=== PATIENT | male | born 1960 | race Caucasian/White ===

== ENCOUNTER 2017-01-08 18:35 | Emergency (ER) | payer OTHER ==
[~2017-01-08 18:35] MED LIST: ADA60 PO; ALD50 PO; APR50 PO; CAT0.1 PO; CLONIDINE0.1 M1 PO; DIOHCT PO; FENOFIBRATE145 M1 PO; FUROSEMIDE40 MG PO; GLIPIZIDE5 MG PO; ISO10 PO; KLOR-CON M2020 MEQ PO; LIPI20 PO; LOVAZA1 G1 PO; NEFEDIPINE PO; NIFEDIPINE ER60 MG PO; PYR100 PO; SYN1 PO; SYN2 PO; TOP50 PO; ZES10 PO; ZES20 PO; ZESTRIL40 MG PO
[2017-01-08 20:39] LABS: BASOPHIL % 0.7 % (0-2); CALCIUM 7.9 mg/dL (8.5-10.1); CARBON DIOXIDE 32.3 mmol/L (21-32); CREATININE SERUM 3.5 mg/dL (0.7-1.3); POTASSIUM SERUM 3.2 mmol/L (3.5-5.1)
[2017-01-08 20:42] LABS: PLATELET COUNT 405 x10^3mcL (130-400); RED CELL DISTRIBUTION WIDTH 16.6 % (11.5-14.5)
[2017-01-08 20:44] LABS: BILIRUBIN TOTAL 0.59 mg/dL (0.20-1.00); TOTAL PROTEIN, SERUM 6.8 g/dL (6.4-8.2)
[2017-01-08 20:49] LABS: ALBUMIN 2.3 g/dL (3.4-5.0)
[2017-01-09 02:45] VITALS: BP 120/88
== END 2017-01-09 02:45 | disposition short-term general hospital (02) ==
LOC: ED 18:35
PROVIDERS: Emergency Medicine
DX: R07.89 Other chest pain (principal); R09.02 Hypoxemia; N28.9 Disorder of kidney and ureter, unspecified; R79.89 Other specified abnormal findings of blood chemistry; I10 Essential (primary) hypertension; E11.9 Type 2 diabetes mellitus without complications; Z85.850 Personal history of malignant neoplasm of thyroid
CPT/HCPCS: 36600; 83880; J0456; J0696; J1644; J2270; J2405; J7030; J7040; J7050; J7613; Q0092

== ENCOUNTER 2017-03-10 10:22 | Inpatient (IN) | payer OTHER ==
[~2017-03-10] VITALS: Ht 172.7 cm; Wt 87.2 kg
[2017-03-10 11:20] LABS: RED CELL DISTRIBUTION WIDTH 13.7 % (11.5-14.5)
[2017-03-10 11:29] LABS: BASOPHIL % 0.3 % (0-2); PLATELET COUNT 535 x10^3mcL (130-400)
[2017-03-10 11:40] LABS: BILIRUBIN TOTAL 0.6 mg/dL (0.20-1.00); CALCIUM 9.1 mg/dL (8.5-10.1); CARBON DIOXIDE 23.5 mmol/L (21-32); CREATININE SERUM 2.8 mg/dL (0.7-1.3); TOTAL PROTEIN, SERUM 7.9 g/dL (6.4-8.2)
[2017-03-10 11:42] LABS: ALBUMIN 2.9 g/dL (3.4-5.0)
[2017-03-10 11:43] LABS: POTASSIUM SERUM 2.7 mmol/L (3.5-5.1)
[2017-03-10 12:54] LABS: T4(THYROXINE) 19.2 ug/dL (4.7-13.3)
[2017-03-10 13:11] LABS: AMYLASE 42 U/L (25-115); HDL CHOLESTEROL 41 mg/dL (40-60); LIPASE 218 IU/L (73-393); MAGNESIUM 2.1 mg/dL (1.8-2.4); PHOSPHOROUS 2.3 mg/dL (2.5-4.9)
[2017-03-10 13:12] LABS: CHOLESTEROL 268 mg/dL (<200); CHOLESTEROL/HDL RATIO 6.5; TRIGLYCERIDES 434 mg/dL (<150)
[2017-03-10 13:17] LABS: microscopic required? YES; urine erythrocyte TRACE (NEGATIVE)
[2017-03-10 13:56] VITALS: BP 194/99
[2017-03-10 14:13] LABS: AMPHETAMINE QUAL UR NONE DETECTED (NEG <=1000)
[2017-03-10 17:37] VITALS: BP 178/100
[2017-03-10 21:28] LABS: CARBON DIOXIDE 26.6 mmol/L (21-32); CREATININE SERUM 2.8 mg/dL (0.7-1.3)
[2017-03-10 21:34] VITALS: BP 159/78
[2017-03-11] VITALS (10 sets, daily range): BP systolic 167–212; BP diastolic 95–111
[2017-03-11 06:34] LABS: BASOPHIL % 0.5 % (0-2); RED CELL DISTRIBUTION WIDTH 13.7 % (11.5-14.5)
[2017-03-11 06:53] LABS: PLATELET COUNT 406 x10^3mcL (130-400)
[2017-03-11 07:02] LABS: CALCIUM 8.2 mg/dL (8.5-10.1); CARBON DIOXIDE 25.8 mmol/L (21-32); CREATININE SERUM 2.8 mg/dL (0.7-1.3); MAGNESIUM 2.2 mg/dL (1.8-2.4); PHOSPHOROUS 3.7 mg/dL (2.5-4.9); POTASSIUM SERUM 3.1 mmol/L (3.5-5.1)
[2017-03-12 01:15] VITALS: BP 167/89
[2017-03-12 05:22] VITALS: BP 168/87
[2017-03-12 05:53] LABS: BASOPHIL % 0.5 % (0-2); PLATELET COUNT 342 x10^3mcL (130-400); RED CELL DISTRIBUTION WIDTH 14.3 % (11.5-14.5)
[2017-03-12 06:03] LABS: CALCIUM 8.2 mg/dL (8.5-10.1); CARBON DIOXIDE 26.7 mmol/L (21-32); CREATININE SERUM 3.1 mg/dL (0.7-1.3); POTASSIUM SERUM 3.2 mmol/L (3.5-5.1)
[2017-03-12 08:00] VITALS: BP 195/100
[2017-03-12 12:30] VITALS: BP 168/90
[2017-03-12] MEDS ORDERED: CLONIDINE HYDR0.3 M1 PO (12:30)
[2017-03-12] MEDS ORDERED: ISO10 PO (12:32)
[2017-03-12] MEDS ORDERED: COUMADIN5 MG PO (12:41)
[2017-03-12 13:46] VITALS: BP 156/84
[2017-03-12 15:00] VITALS: BP 156/84
== END 2017-03-12 15:55 | disposition home or self-care (01) | DRG 73 ==
LOC: ED 10:22 → DU 12:07 → MU 03-12 11:29
PROVIDERS: Emergency Medicine; ADMIT Family Medicine
DX: G90.8 Other disorders of autonomic nervous system (principal); N17.0 Acute kidney failure with tubular necrosis; E44.0 Moderate protein-calorie malnutrition; D68.69 Other thrombophilia; E87.6 Hypokalemia; E86.0 Dehydration; I16.0 Hypertensive urgency; E78.2 Mixed hyperlipidemia; E89.0 Postprocedural hypothyroidism; E83.39 Other disorders of phosphorus metabolism; E66.9 Obesity, unspecified; Z68.30 Body mass index [BMI] 30.0-30.9, adult; Z86.711 Personal history of pulmonary embolism; Z79.01 Long term (current) use of anticoagulants; Z85.850 Personal history of malignant neoplasm of thyroid; Z90.89 Acquired absence of other organs; Z82.3 Family history of stroke; Z82.49 Family history of ischemic heart disease and other diseases of the circulatory system; Z83.3 Family history of diabetes mellitus; Z80.8 Family history of malignant neoplasm of other organs or systems
CPT/HCPCS: 83880; 87046; 87046-59; 97110-GP; 97116-GP; C9113; J0360; J2765; J3480; J7030; Q0092

== ENCOUNTER 2017-12-12 22:54 | Inpatient (IN) | payer OTHER ==
[~2017-12-12] VITALS: Ht 165.1 cm; Wt 94.9 kg
[~2017-12-12 22:54] MED LIST changes: +CLONIDINE HYDR0.3 M1 PO; +COUMADIN5 MG PO
[2017-12-12 22:58] VITALS: Ht 165.1 cm; Wt 94.9 kg
[2017-12-13 00:01] LABS: BASOPHIL % 0 % (0-2); PLATELET COUNT 374 x10^3mcL (130-400)
[2017-12-13 00:13] LABS: BILIRUBIN TOTAL 0.9 mg/dL (0.20-1.00); CARBON DIOXIDE 24.3 mmol/L (21-32); TOTAL PROTEIN, SERUM 7.2 g/dL (6.4-8.2); URIC ACID 7.5 mg/dL (3.5-7.2)
[2017-12-13 00:15] LABS: ALBUMIN 2.2 g/dL (3.4-5.0)
[2017-12-13 00:16] LABS: CREATININE SERUM 5.3 mg/dL (0.7-1.3); POTASSIUM SERUM 2.3 mmol/L (3.5-5.1)
[2017-12-13 02:20] LABS: SITE FLUID LEFT KNEE; SOURCE FLUID LEFT KNEE EFFUSION
[2017-12-13 02:21] LABS: APPEARANCE FLUID HAZY; COLOR FLUID YELLOW; LYMPHOCYTE FLUID 1 %; RBC FLUID 0 /cumm; WBC FLUID 31809 /cumm
[2017-12-13 02:41] LABS: MAGNESIUM 1.8 mg/dL (1.8-2.4); PHOSPHOROUS 5.2 mg/dL (2.5-4.9)
[2017-12-13 02:43] LABS: CHOLESTEROL/HDL RATIO 3.9
[2017-12-13 02:43] LABS: UA SPECIFIC GRAVITY 1.015 (1.005-1.035); microscopic required? YES; urine erythrocyte 2+ (NEGATIVE)
[2017-12-13 02:48] LABS: T3 TOTAL 0.48 ng/mL
[2017-12-13 02:49] LABS: FREE T4 0.83 ng/dL (0.76-1.46)
[2017-12-13 02:50] LABS: FREE THYROXINE INDEX 1.6 ug/dL (1.4-4.5); T4(THYROXINE) 4.5 ug/dL (4.7-13.3)
[2017-12-13] MEDS ORDERED: PHOSLO667 MG PO (02:51)
[2017-12-13] MEDS ORDERED: CARVEDILOL3.125 M1 PO (02:52)
[2017-12-13 02:53] LABS: AMPHETAMINE QUAL UR NONE DETECTED (NEG <=1000)
[2017-12-13] MEDS ORDERED: ATENOLOL25 MG PO (02:53)
[2017-12-13] MEDS ORDERED: HYDRALAZINE HCL25 MG PO (02:54)
[2017-12-13] MEDS ORDERED: NIFEDIPINE60 MG PO (02:54)
[2017-12-13] MEDS ORDERED: ZESTRIL20 MG PO (02:58)
[2017-12-13] MEDS ORDERED: ISO10 PO (03:00)
[2017-12-13] MEDS ORDERED: SYN1 PO (03:00)
[2017-12-13 03:24] VITALS: BP 171/89
[2017-12-13 05:48] VITALS: BP 166/83
[2017-12-13 08:26] VITALS: BP 154/81
[2017-12-13 09:39] LABS: BASOPHIL % 0.4 % (0-2); PLATELET COUNT 326 x10^3mcL (130-400)
[2017-12-13 09:41] LABS: CARBON DIOXIDE 25.1 mmol/L (21-32)
[2017-12-13 09:42] LABS: RED CELL DISTRIBUTION WIDTH 15.1 % (11.5-14.5)
[2017-12-13 09:45] LABS: CREATININE SERUM 5.2 mg/dL (0.7-1.3); POTASSIUM SERUM 2.5 mmol/L (3.5-5.1)
[2017-12-13 09:48] LABS: IRON 20 ug/dL (65-170); TOTAL IRON BINDING CAPACITY 127 ug/dL (250-450)
[2017-12-13 10:06] LABS: RED BLOOD CELLS 3.59 M/mm3 (4.52-5.90)
[2017-12-13 13:20] VITALS: BP 147/84
[2017-12-13 16:30] VITALS: BP 137/72
[2017-12-13 20:58] LABS: CALCIUM 7.2 mg/dL (8.5-10.1); CARBON DIOXIDE 23.4 mmol/L (21-32)
[2017-12-13 21:02] LABS: CREATININE SERUM 5.4 mg/dL (0.7-1.3); POTASSIUM SERUM 2.6 mmol/L (3.5-5.1)
[2017-12-13 21:34] VITALS: BP 154/79
[2017-12-14 05:36] VITALS: BP 126/69
[2017-12-14 06:28] LABS: BASOPHIL % 0.7 % (0-2); PLATELET COUNT 323 x10^3mcL (130-400)
[2017-12-14 07:13] LABS: RED CELL DISTRIBUTION WIDTH 15.2 % (11.5-14.5)
[2017-12-14 07:17] LABS: CALCIUM 6.9 mg/dL (8.5-10.1); CARBON DIOXIDE 21.9 mmol/L (21-32); MAGNESIUM 1.9 mg/dL (1.8-2.4); PHOSPHOROUS 6.3 mg/dL (2.5-4.9)
[2017-12-14 07:28] LABS: CREATININE SERUM 5.6 mg/dL (0.7-1.3); POTASSIUM SERUM 2.9 mmol/L (3.5-5.1)
[2017-12-14 08:30] VITALS: BP 141/75
[2017-12-14 15:32] LABS: CALCIUM 7.2 mg/dL (8.5-10.1); CARBON DIOXIDE 24.4 mmol/L (21-32); POTASSIUM SERUM 3.3 mmol/L (3.5-5.1)
[2017-12-14 15:40] LABS: CREATININE SERUM 5.8 mg/dL (0.7-1.3)
[2017-12-14 17:08] VITALS: BP 149/71
[2017-12-14 22:28] VITALS: BP 149/80
[2017-12-15] VITALS (8 sets, daily range): BP systolic 152–199; BP diastolic 78–105
[2017-12-15 06:34] LABS: BASOPHIL % 0.7 % (0-2); PLATELET COUNT 340 x10^3mcL (130-400)
[2017-12-15 06:35] LABS: RED CELL DISTRIBUTION WIDTH 15.6 % (11.5-14.5)
[2017-12-15 06:49] LABS: CALCIUM 7.8 mg/dL (8.5-10.1); CARBON DIOXIDE 21.9 mmol/L (21-32)
[2017-12-15 06:52] LABS: CREATININE SERUM 5.7 mg/dL (0.7-1.3)
[2017-12-15] MEDS ORDERED: FER300 PO (16:12)
[2017-12-15] MEDS ORDERED: VITC PO (16:13)
== END 2017-12-15 22:15 | disposition home or self-care (01) | DRG 548 ==
LOC: ED 22:54 → DU 12-13 01:30 → MU 12-13 01:30 → DU 12-13 02:55 → MU 12-14 10:50 → DU 12-15 16:55
PROVIDERS: Emergency Medicine; Family Medicine
PROC: 0S9B3ZZ Drainage of Left Hip Joint, Percutaneous Approach (ICD-10-PCS; principal; 2017-12-13)
DX: M00.9 Pyogenic arthritis, unspecified (principal); E43 Unspecified severe protein-calorie malnutrition; N18.6 End stage renal disease; N17.9 Acute kidney failure, unspecified; I12.0 Hypertensive chronic kidney disease with stage 5 chronic kidney disease or end stage renal disease; I10 Essential (primary) hypertension; M25.462 Effusion, left knee; D72.829 Elevated white blood cell count, unspecified; E87.6 Hypokalemia; E83.51 Hypocalcemia; I16.0 Hypertensive urgency; E78.2 Mixed hyperlipidemia; E83.39 Other disorders of phosphorus metabolism; E11.22 Type 2 diabetes mellitus with diabetic chronic kidney disease; D63.1 Anemia in chronic kidney disease; M65.862 Other synovitis and tenosynovitis, left lower leg; M71.22 Synovial cyst of popliteal space [Baker], left knee; E02 Subclinical iodine-deficiency hypothyroidism; Z86.711 Personal history of pulmonary embolism; Z79.01 Long term (current) use of anticoagulants; Z85.850 Personal history of malignant neoplasm of thyroid; Z82.49 Family history of ischemic heart disease and other diseases of the circulatory system; Z82.3 Family history of stroke; Z80.8 Family history of malignant neoplasm of other organs or systems; Z83.3 Family history of diabetes mellitus; Z68.34 Body mass index [BMI] 34.0-34.9, adult
CPT/HCPCS: 83880; 84439; J0360; J1885; J2543; J3010; J3480; J7030; Q0092; Q0162

== ENCOUNTER 2019-10-24 09:23 | Emergency (ER) | payer OTHER ==
[~2019-10-24] VITALS: Ht 170.2 cm; Wt 95.3 kg
[~2019-10-24 09:23] MED LIST changes: +ATENOLOL25 MG PO; +CARVEDILOL3.125 M1 PO; +FER300 PO; +HYDRALAZINE HCL25 MG PO; +NIFEDIPINE60 MG PO; +PHOSLO667 MG PO; +VITC PO; +ZESTRIL20 MG PO
[2019-10-24 09:40] VITALS: BP 149/79; Ht 170.2 cm; Wt 95.3 kg
== END 2019-10-24 11:14 | disposition home or self-care (01) ==
LOC: ED 09:23
DX: J11.1 Influenza due to unidentified influenza virus with other respiratory manifestations (principal); I10 Essential (primary) hypertension; E11.9 Type 2 diabetes mellitus without complications
CPT/HCPCS: Q0092